=== PATIENT | female | born 1965 | race Caucasian/White ===

== ENCOUNTER 2020-03-01 07:41 | Day surgery (SDC) | payer BC ==
--- NOTE | 2020-02-29 14:06 | PCM.PREANE ---
<Racheal iBshop M - Last Filed: 03/01/20 09:15> Preanesthetic Assessment - Procedure Proposed Procedure: left peroneal tendon repair - Anesthesia/Transfusion/Family Hx Anesthesia History: Prior Anesthesia Without Reaction Family History of Anesthesia Reaction: No Transfusion History: No Prior Transfusion(s) - Review of Systems General: No Symptoms Pulmonary: No Symptoms (Asthma-doesn't think she has- uses inhaler when sick) Cardiovascular: Dyspnea on Exertion, Edema (if sits too long) Gastrointestinal: No Symptoms Neurological: No Symptoms Other: Reports: Throat Pain (no pain), Depression - Physical Assessment NPO Status Time: 20:00 Vital Signs: 150/87 77 96% 18 Weight: 115.212 kg ASA Class: 3 Mental Status: Alert & Oriented x3 Airway Class: Mallampati = 1 Dentition: Reports: Dentures (top and bottom- jsut had oral surgery wednesday- implants in) Thyro-Mental Finger Breadths: 3 Mouth Opening Finger Breadths: 3 ROM/Head Extension: Full Lungs: Clear to Auscultation, Normal Respiratory Effort Cardiovascular: Regular Rate, Regular Rhythm - Allergies Allergies/Adverse Reactions: Allergies Allergy/AdvReac Type Severity Reaction Status Date / Time erythromycin base Allergy Cannot Verified 03/01/20 08:47 Remember Iodinated Contrast Media Allergy Anaphylactic Verified 03/01/20 08:47 Shock iopamidol Allergy Anaphylactic Verified 03/01/20 08:47 Shock Tetracyclines Allergy Cannot Verified 03/01/20 08:47 Remember - Blood Blood Available: No - Anesthesia Plan Pre-Op Medication Ordered: None - Acknowledgements Anesthesia Type Planned: General Anesthesia Pt an Appropriate Candidate for the Planned Anesthesia: Yes Alternatives and Risks of Anesthesia Discussed w Pt/Guardian: Yes Pt/Guardian Understands and Agrees with Anesthesia Plan: Yes PreAnesthesia Questionnaire Cardiovascular History: Reports: High Cholesterol Respiratory History: Reports: Asthma Gastrointestinal History: Reports: GERD Psychiatric History: Reports: Depression Endocrine/Metabolic History: Reports: Obesity/BMI 30+ Oncologic (Cancer) History: Reports: None - Past Surgical History HEENT Surgical History: Reports: Oral Surgery, Tonsillectomy GI Surgical History: Reports: Cholecystectomy - SUBSTANCE USE Smoking Status *Q: Never Smoker Tobacco Use Within Last Twelve Months: No Second Hand Smoke Exposure: No Days Per Week of Alcohol Use: 0 Recreational Drug Use History: No - HOME MEDS Home Medications: Home Meds Cholecalciferol (Vitamin D3) [Vitamin D3] 1,000 units PO DAILY 06/25/16 [History] Glucosam/Chond-Msm1/C/Max/Bor [Zglkqgs-Krpbq-BSR Complex Cplt] 1 tab PO BID 06/25/16 [History] Multivitamin [Multi-Vitamin Daily] 1 each PO DAILY 06/25/16 [History] Vilazodone [Viibryd] 40 mg PO DAILY 06/25/16 [History] Albuterol [Ventolin HFA] 2 puff INH Q4H PRN 02/29/20 [History] Budesonide [Pulmicort Flexhaler] 2 puff INH BID PRN 02/29/20 [History] Penicillin V Potassium [Veetids] 5,000 mg PO QID 02/29/20 [History] <Esthela Muniz - Last Filed: 03/01/20 09:40> Preanesthetic Assessment - Anesthesia/Transfusion/Family Hx Anesthesia History: Prior Anesthesia Without Reaction Family History of Anesthesia Reaction: No Transfusion History: No Prior Transfusion(s) Intubation History: Unknown - Review of Systems General: Fatigue Pulmonary: No Symptoms (Asthma) Cardiovascular: No Symptoms (elevated cholesterol), Palpitations, Dyspnea on Exertion, Edema Other: Reports: Throat Pain (TMJ disorder), Depression - Physical Assessment NPO Status Date: 02/29/20 Vital Signs: HR:77 B/P:147/87 Resp:17 Sat:96% Temp:37.1 Height: 1.65 m ASA Class: 3 Mental Status: Alert & Oriented x3 - Lab Values: All labs reviewed and noted and within acceptable ranges to proceed with scheduled procedure. - Anesthesia Plan Pre-Op Medication Ordered: None - Acknowledgements Anesthesia Type Planned: General Anesthesia Pt an Appropriate Candidate for the Planned Anesthesia: Yes Alternatives and Risks of Anesthesia Discussed w Pt/Guardian: Yes Pt/Guardian Understands and Agrees with Anesthesia Plan: Yes PreAnesthesia Questionnaire HEENT History: Reports: Sinusitis, Other (See Below) Other HEENT History: otitis externa, TMJ, wears glasses, has dentures Cardiovascular History: Reports: High Cholesterol Gastrointestinal History: Reports: GERD (occasionally depends on food) Musculoskeletal History: Reports: Other (See Below) Other Musculoskeletal History: sprained/broken ankle Psychiatric History: Reports: Depression Oncologic (Cancer) History: Reports: None Dermatologic History: Reports: Other (See Below) Other Dermatologic History: rash - Past Surgical History HEENT Surgical History: Reports: Tonsillectomy GI Surgical History: Reports: Cholecystectomy - CURRENT (IN HOUSE) MEDS Current Meds: Current Medications Albuterol (Proventil Neb Soln) 2.5 mg NEB ONETIME PRN PRN Reason: bronchodilation Stop: 03/01/20 18:00 Lactated Ringer's (Ringers, Lactated) 1,000 mls @ 125 mls/hr IV ASDIRECTED CIERA Stop: 03/01/20 23:00 Last Admin: 03/01/20 08:25 Dose: 125 mls/hr Documented by: Lidocaine/Sodium Bicarbonate (Buffered Lidocaine 1% In Ns 8.4%) 0.25 ml IDERM ONETIME PRN PRN Reason: Prior to IV Start Stop: 03/01/20 18:00 Sodium Chloride (Saline Flush) 10 ml FLUSH ASDIRECTED PRN PRN Reason: Keep Vein Open Stop: 03/01/20 18:00 Discontinued Medications Cefazolin Sodium (Ancef) Confirm Administered Dose 2 gm .ROUTE .STK-MED ONE Stop: 03/01/20 07:06 Dexamethasone (Dexamethasone) Confirm Administered Dose 20 mg .ROUTE .STK-MED ONE Stop: 03/01/20 07:06 Fentanyl (Sublimaze) Confirm Administered Dose 250 mcg .ROUTE .STK-MED ONE Stop: 03/01/20 07:08 Hydromorphone HCl (Dilaudid) Confirm Administered Dose 1 mg .ROUTE .STK-MED ONE Stop: 03/01/20 07:06 Lidocaine HCl (Xylocaine-Mpf 1%) Confirm Administered Dose 6 mls @ as directed .ROUTE .STK-MED ONE Stop: 03/01/20 07:06 Lactated Ringer's (Ringers, Lactated) Confirm Administered Dose 1,000 mls @ as directed .ROUTE .STK-MED ONE Stop: 03/01/20 07:06 Ketorolac Tromethamine (Toradol) Confirm Administered Dose 30 mg .ROUTE .STK-MED ONE Stop: 03/01/20 07:06 Midazolam HCl (Versed 1 Mg/Ml) Confirm Administered Dose 2 mg .ROUTE .STK-MED ONE Stop: 03/01/20 07:07 Ondansetron HCl (Zofran) Confirm Administered Dose 4 mg .ROUTE .STK-MED ONE Stop: 03/01/20 07:06 Propofol (Diprivan 20 Ml) Confirm Administered Dose 200 mg .ROUTE .STK-MED ONE Stop: 03/01/20 07:07 Rocuronium Catano (Zemuron) Confirm Administered Dose 50 mg .ROUTE .STK-MED ONE Stop: 03/01/20 07:06
[~2020-03-01 07:41] MED LIST: Albuterol 0.083% 2.5 MG/3 ML Neb Soln NEB PRN; Dexamethasone 4 MG/ML 5 ML MDV ONE; HYDROmorphone 1 MG/ML Syringe ONE; Ketorolac 30 MG/ML SDV ONE; Lactated Ringers 1,000 ML IV SCH; Lactated Ringers 1,000 ML ONE; Lidocaine 1% 6 ML ONE; Lidocaine 1%/Sod Bicarbonate in NS 8.4% 1 ML Syringe IDERM PRN; Midazolam 1 MG/ML 2 ML SDV ONE; Ondansetron 4 MG/2 ML SDV ONE; Propofol 200 MG/20 ML SDV ONE; Rocuronium 50 MG/5 ML Vial ONE; Sodium Chloride 0.9% 10 ML Syringe FLUSH PRN; ceFAZolin 1 GM Vial ONE; fentaNYL 250 MCG/5 ML SDV ONE
[2020-03-01] MEDS ORDERED: Lidocaine 1% 30 ML SDV ONE (11:25)
[2020-03-01] MEDS ORDERED: Bupivacaine 0.5% 30 ML SDV ONE (11:26)
[2020-03-01] MEDS ORDERED: Ondansetron 4 MG/2 ML SDV IVPUSH PRN (11:49)
[2020-03-01] MEDS ORDERED: ePHEDrine 50 MG/ML SDV IVPUSH PRN (11:49)
[2020-03-01] MEDS ORDERED: fentaNYL 100 MCG/2 ML SDV IVPUSH PRN (11:49)
[2020-03-01] MEDS ORDERED: diphenhydrAMINE 50 MG/ML SDV IVPUSH PRN (11:49)
[2020-03-01] MEDS ORDERED: Albuterol 0.083% 2.5 MG/3 ML Neb Soln NEB PRN (11:49)
[2020-03-01] MEDS ORDERED: Ketamine 500 mg/10 ML MDV ONE (11:51)
[2020-03-01] MEDS ORDERED: HYDROmorphone 0.5 MG/0.5 ML Syringe IVPUSH PRN (11:55)
[2020-03-01] MEDS ORDERED: Phenylephrine 1 MG in Sodium Chloride 0.9% 10 ML IV SCH (12:00)
[2020-03-01] MEDS ORDERED: Propofol 200 MG/20 ML SDV ONE (12:10)
[2020-03-01] MEDS ORDERED: Lactated Ringers 1,000 ML ONE (12:52)
--- NOTE | 2020-03-01 13:09 | PCM.OPNOTE ---
- General Post-Op/Procedure Note Date of Surgery/Procedure: 03/01/20 Operative Procedure(s): Primary Repair of Peroneal Brevis split tear using Stravix, LEFT ankle Pre Op Diagnosis: Painful/symptomatic Peroneal Brevis split tear, LEFT ankle Anesthesia Technique: General LMA, Local Other Anesthesia Type: local block Primary Surgeon: Morro Garcia II Anesthesia Provider: Esthela Muniz EBL in mLs: 10 Complications: None Condition: Good Free Text/Narrative:: Patient left the OR for recovery with vital signs stable & vascular status intact, digits 1-5 LEFT foot/ankle.
--- NOTE | 2020-03-01 13:11 | PCM48HPAN ---
Post Anesthesia Note - EVALUATION WITHIN 48HRS OF ANESTHETIC Vital Signs in Normal Range: Yes Patient Participated in Evaluation: Yes Respiratory Function Stable: Yes Airway Patent: Yes Cardiovascular Function Stable: Yes Hydration Status Stable: Yes Pain Control Satisfactory: Yes Nausea and Vomiting Control Satisfactory: Yes Mental Status Recovered: Yes Vital Signs: Last Vital Signs Temp 37.1 C 03/01/20 08:00 Pulse 77 03/01/20 08:00 Resp 17 03/01/20 08:00 BP 147/87 H 03/01/20 08:00 Pulse Ox 96 03/01/20 08:00
[2020-03-01 14:10] VITALS: BP 131/71; PULSE 75
--- NOTE | 2020-03-01 22:45 | OR ---
DATE OF OPERATION: 03/01/2020 SURGEON: Morro Garcia II, DPM LOCATION: [facility]. ANESTHESIA: LMA general with local block. ANESTHESIA PROVIDER: Esthela Muniz CRNA. HEMOSTASIS: Left pneumatic ankle tourniquet at 250 mmHg. PREOPERATIVE DIAGNOSIS: Painful and symptomatic split tear, peroneal brevis tendon, left ankle. POSTOPERATIVE DIAGNOSIS: Painful and symptomatic split tear, peroneal brevis tendon, left ankle. OPERATION PERFORMED: Primary peroneal brevis tendon repair with Stravix. DESCRIPTION OF PROCEDURE: Upon arrival and admission to the hospital, patient was examined and cleared for surgery by the assigned anesthesia provider. IV access was obtained in the preoperative area, after which patient received prophylactic antibiotics consisting of 2 g of Ancef IV piggyback. The patient was given a combination of sedations and was adequately sedated before receiving 10 mL of 1:1 mixture of 1% lidocaine plain of 0.5% Marcaine plain from a local infiltrative block about the left lateral ankle. The patient was then wrapped with cotton Webril padding at the level of the calf muscle for a left pneumatic ankle tourniquet and then secured and draped with a sterile drape. The left lower extremity was then prepped and draped in usual aseptic manner. Left lower extremity was then elevated and exsanguinated with use of an Esmarch bandage before inflating the left pneumatic ankle tourniquet to 250 mmHg pressure. The Esmarch bandage was removed. Left lower extremity was placed back to the level of operating room table. Attention was then directed to the inferior lateral aspect of the left lateral malleolus where an approximately 6 cm curvilinear incision was created along the course of the peroneal tendons. This was a controlled depth skin incision, taken down to the level of subcutaneous structures with care taken to retract the vital neurovascular structures within the area as well as cauterize or ligate all superficial bleeders as deemed necessary. Continuous soft tissue dissection was taken down to the level of the teno-capsular structures overlying the peroneal tendons, which were then incised to bring into exposure a longitudinal split thickness tear of the peroneal brevis tendon around the lateral malleolus. The flayed tendon was then re-tubularized utilizing 3-0 Vicryl and Stravix orthobiologic was then onlayed to the repaired portion of the peroneal brevis tendon and incorporated with 3-0 Vicryl. The wound was then copiously lavaged with sterile saline solution and closure was undertaken to reapproximate the peroneal tendons as they sat behind the groove of the lateral malleolus. Deep closure was undertaken with 3-0 Vicryl and the subcuticular level was reapproximated with 4-0 Vicryl, while the skin was reapproximated utilizing 4-0 nylon. The patient appeared to tolerated the procedure and anesthesia well and the left pneumatic ankle tourniquet was deflated, but prior to this, the wound site was injected with an additional 10 mL of 0.5% Marcaine plain while the dressings consisted of Adaptic gauze, 4 x 4 gauze, Nona, and an Ike bandage. Upon completion of this portion of the surgery, the left lower extremity was then removed of all of its dressings, and the patient left the OR for recovery with vital signs being stable and neurovascular status intact digits 1 through 5 of the left lower extremity with no apparent complications. In recovery, patient received written and oral postop instructions, postoperative pain medication. The patient will ambulate partial weightbearing with an immobilization boot about her left foot and ankle. ESTIMATED BLOOD LOSS: For this procedure is approximately 10 mL and considered negligible about the left foot and ankle. COMPLICATIONS: There were no apparent or obvious complications. MMODAL /[id number]
== END 2020-03-01 14:20 | disposition home or self-care (01) ==
LOC: JD.SDS 07:41
PROVIDERS: ATTEND Podiatrist Foot & Ankle Surgery
DX: S96.812A Strain of other specified muscles and tendons at ankle and foot level, left foot, initial encounter (principal); J45.20 Mild intermittent asthma, uncomplicated; F32.9 Major depressive disorder, single episode, unspecified; E78.00 Pure hypercholesterolemia, unspecified; K21.9 Gastro-esophageal reflux disease without esophagitis; J45.909 Unspecified asthma, uncomplicated; E66.9 Obesity, unspecified; Z88.1 Allergy status to other antibiotic agents; Z68.41 Body mass index [BMI] 40.0-44.9, adult; Z87.09 Personal history of other diseases of the respiratory system; Z87.01 Personal history of pneumonia (recurrent); Z88.8 Allergy status to other drugs, medicaments and biological substances; Z91.041 Radiographic dye allergy status; X58.XXXA Exposure to other specified factors, initial encounter
CPT/HCPCS: 28200; 94640; J0690; J1100; J1170; J1885; J2001; J2250; J2704; J3010; J3490; J7120; 01470; J2405